=== PATIENT | female | born 1950 | race Caucasian/White ===

== ENCOUNTER 2016-12-24 08:12 | Day surgery (SDC) | payer MEDICARE, BC ==
[~2016-12-24] VITALS: Ht 167.6 cm; Wt 82.5 kg
--- NOTE | 2016-12-29 15:28 | OR ---
ADMIT: 12/24/2016 RM/LOC: [facility] MR#: [id number] [address] [address] PAIDER, [place] [address] Operative/Delivery Room Report SEX: F AGE: 66 : 1950 SURGERY DATE: 12/24/2016 SURGEON: Yves Middleton MD PREOPERATIVE DIAGNOSIS: Cholelithiasis with chronic cholecystitis. POSTOPERATIVE DIAGNOSIS: Cholelithiasis with chronic cholecystitis. PROCEDURE: Laparoscopic cholecystectomy. SUPERVISOR SCREEN PRINTING: SUZANNE Gamino, whose assistance was necessary for laparoscopic visualization and tissue retraction. ANESTHESIA: General endotracheal. ESTIMATED BLOOD LOSS: 10 mL. DESCRIPTION OF PROCEDURE: The patient was taken to the operating room and placed supine on the operating room table. General anesthesia was established. The abdomen was prepped and draped in the standard surgical fashion. A 5 mm left subcostal incision was made in the midclavicular line. A Veress needle was advanced into the peritoneal cavity. Carbon dioxide was used to insufflate the abdomen to 15 mmHg pressure. The Veress needle was withdrawn, and a 5 mm XCEL Optiview trocar was placed. There were anterior abdominal wall adhesions which were avoided. A supraumbilical 5 mm port was placed under visualization as were an 11 mm subxiphoid port and 2 right lateral 5 mm ports. The gallbladder was markedly distended with numerous adhesions to the edge. These were taken down with cautery and retraction to the cystic duct. The cystic duct was skeletonized and the view of safety was obtained at Calot's triangle. The cystic duct was doubly clipped distally, ADMIT: 12/24/2016 RM/LOC: [facility] MR#: [id number] [place] [address] PAIDER, [place] [address] Operative/Delivery Room Report SEX: F AGE: 66 : 1950 singly clipped proximally, and divided. The cystic artery was skeletonized, doubly clipped proximally, singly clipped distally, and divided. The gallbladder was excised from the gallbladder fossa with Bovie cautery. It was placed in an EndoCatch bag and removed through the subxiphoid port site. The right upper quadrant was irrigated. There was no evidence of bleeding. No evidence of bile leak, and the clips remained intact on the cystic duct and artery. The ports were removed under visualization without evidence of bleeding. The skin edges were approximated with 4-0 Monocryl in a subcuticular fashion and Dermabond. Local anesthetic was injected in the incisions. Sponge, needle, and instrument counts were correct at the end of the case. The patient tolerated the procedure well and transferred to the recovery area in stable condition. Yves Middleton MD/ darshan JOB #: [id number] CC: Yves Middleton, Attending Physician Elsie Murphy, Family Physician
== END 2016-12-24 15:50 | disposition home or self-care (01) ==
LOC: SSS 08:12
PROC: 0FT44ZZ Resection of Gallbladder, Percutaneous Endoscopic Approach (ICD-10-PCS; principal; 2016-12-24)
DX: K80.10 Calculus of gallbladder with chronic cholecystitis without obstruction (principal); G47.30 Sleep apnea, unspecified; I10 Essential (primary) hypertension; K21.9 Gastro-esophageal reflux disease without esophagitis; M19.90 Unspecified osteoarthritis, unspecified site; E78.5 Hyperlipidemia, unspecified; E03.9 Hypothyroidism, unspecified; Z79.899 Other long term (current) drug therapy; Z96.653 Presence of artificial knee joint, bilateral; Z98.890 Other specified postprocedural states; Z88.1 Allergy status to other antibiotic agents; Z88.8 Allergy status to other drugs, medicaments and biological substances